=== PATIENT | male | born 1970 | race Caucasian/White ===

== ENCOUNTER → 2020-12-26 | Day surgery (SDC) | payer BC, OTHER ==
[~2020-12-26] VITALS: Ht 177.8 cm; Wt 99.8 kg
[~2020-12-26] MED LIST: ATORVASTATIN CA80 MG PO; LEVOTHYROXINE150 MC1 PO; METFORMIN HCL1000 MG PO; OZEMPIC1 MG/0.71; PAXIL 20 MG TAB20 M1 PO; TRAZODONE HCL100 MG PO; TRESIBA FL200 UNIT/1 SUBQ; TRIGLIDE160 MG PO; WELLBUTRIN SR150 MG PO
--- NOTE | ~2020-12-26 | O ---
[facility] [address] [place] [address] OPERATIVE REPORT Name: EUGENE PRATER Room #: REG [facility] Kavitha.#: [id number] Admission: 12/26/20 Attend Phys: Shemar Lopez Discharge: Date of : 66 Report #: [id number] THIS REPORT FOR: cc: Camacho Mix MD, David R. MD VanDenBerghe, Gregory R. MD ~ DATE OF SERVICE: 12/26/2020 PREOPERATIVE DIAGNOSES: Left shoulder pain, adhesive capsulitis, partial-thickness rotator cuff tear. POSTOPERATIVE DIAGNOSES: Left shoulder pain, adhesive capsulitis, partial-thickness rotator cuff tear. PROCEDURE PERFORMED: Left shoulder manipulation under anesthesia. ANESTHESIA: General per LMA with preoperative ultrasound-guided interscalene block. FLUIDS: 200 mL crystalloid. ESTIMATED BLOOD LOSS: None. DESCRIPTION OF PROCEDURE: After proper identification of the patient and the operative site in preoperative holding area, the operative site signed by myself. Prophylactic antibiotics given. We reviewed treatment options including manipulation under anesthesia and arthroscopic capsular release and debridement of the tissues. We have discussed his partial-thickness cuff tear. The patient and his elected to proceed with the manipulation only and if his range of motion was restored, they wished to avoid the arthroscopic portion of the procedure. We discussed that this is the typical course and we can reserve the arthroscopic assessment for if his motion is not able to be achieved or regained with the manipulation. After a satisfactory block, the patient was brought back to the operative suite. After induction of satisfactory general anesthesia, the left shoulder was examined as well as the right and the patient had limited range of motion in all planes. With the scapula stabilized, he was brought into forward elevation and multiple capsular pops and releases were noted that were both palpable and audible as he was able to be brought into full forward elevation in varying positions of abduction. Next, with the scapula stabilized, he was abducted in varying degrees of protraction or retraction and his external rotation was manipulated both with the arm at the side as well in varying degrees of abduction. This again resulted in multiple capsular releases noted. He was then manipulated in internal rotation, varying degrees of position and he had islam of full forward elevation, abduction, external rotation and internal rotation and actually his motion was better on the manipulated side than the nonoperative side when we compared these range of [address] [address] OPERATIVE REPORT Name: PRATEREUGENE ROSY Room #: REG [facility] M.Luis Carlos.#: [id number] Admission: 12/26/20 Attend Phys: Shemar Lopez Discharge: Date of : 66 Report #: [id number] motion measurements. Shoulder was stable. He was then awakened and transferred to the recovery room in stable condition. A sling may be utilized while the block is still in place, which will then be discontinued. He has been instructed to initiate physical therapy tomorrow to begin on his range of motion and discontinue his sling as soon as the block has worn off. By: 2 Shemar Quiñones MD /george
[2020-12-26 08:42] VITALS: BP 155/88
--- NOTE | 2020-12-26 09:26 | EKG ---
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
[2020-12-26 10:52] VITALS: BP 155/88
== END | disposition home or self-care (01) ==
LOC: OR 07:17
PROVIDERS: ATTEND Orthopaedic Surgery Sports Medicine
DX: M25.512 Pain in left shoulder (principal); M75.02 Adhesive capsulitis of left shoulder; M75.102 Unspecified rotator cuff tear or rupture of left shoulder, not specified as traumatic; E11.9 Type 2 diabetes mellitus without complications; E03.9 Hypothyroidism, unspecified; F32.9 Major depressive disorder, single episode, unspecified; E78.5 Hyperlipidemia, unspecified; Z98.890 Other specified postprocedural states; Z79.899 Other long term (current) drug therapy; Z79.4 Long term (current) use of insulin; Z20.822 Contact with and (suspected) exposure to COVID-19; Z87.442 Personal history of urinary calculi; Z87.19 Personal history of other diseases of the digestive system
CPT/HCPCS: 50010; 50101; 57103; 58576; 62110; 62900; 64039; 70005